=== PATIENT | female | born 1950 | race Asian ===

== ENCOUNTER 2016-12-01 10:37 | Outpatient (CLI) | payer OTHER ==
[2016-12-01 11:27] LABS: PLATELET COUNT 210 K/uL (152-353)
[2016-12-01 11:41] LABS: POTASSIUM 3.7 mmol/L (3.6-5.2); SODIUM 141 mmol/L (136-145)
== END 2016-12-01 11:40 | disposition home or self-care (01) ==
LOC: LABW 10:37
PROVIDERS: Nurse Practitioner
DX: Z79.899 Other long term (current) drug therapy (principal); I10 Essential (primary) hypertension; E78.00 Pure hypercholesterolemia, unspecified; E55.9 Vitamin D deficiency, unspecified; R53.83 Other fatigue
CPT/HCPCS: 36415; 80053; 80061; 82043; 82306; 82570; 82607; 83036; 84443; 85027

== ENCOUNTER 2017-01-11 11:01 | Outpatient (CLI) | payer OTHER | END 2017-01-11 12:30 | disposition home or self-care (01) | LOC: MAMMO 11:01 | DX: Z12.31 Encounter for screening mammogram for malignant neoplasm of breast (principal) ==

== ENCOUNTER 2018-01-13 10:21 | Outpatient (CLI) | payer OTHER | END 2018-01-13 22:18 | disposition home or self-care (01) | LOC: MAMMO 10:21 | DX: Z12.31 Encounter for screening mammogram for malignant neoplasm of breast (principal) ==

== ENCOUNTER 2018-08-08 11:19 | Outpatient (CLI) | payer OTHER ==
[2018-08-08 11:59] LABS: POTASSIUM 3.5 mmol/L (3.6-5.2)
== END 2018-08-08 22:48 | disposition home or self-care (01) ==
LOC: LABW 11:19
PROVIDERS: Nurse Practitioner
DX: E11.9 Type 2 diabetes mellitus without complications (principal); E87.6 Hypokalemia
CPT/HCPCS: 36415; 80048; 83036; 83735

== ENCOUNTER 2019-01-16 10:41 | Outpatient (CLI) | payer OTHER ==
[2019-01-16 13:01] LABS: POTASSIUM 3.5 mmol/L (3.6-5.2)
== END 2019-01-16 19:47 | disposition home or self-care (01) ==
LOC: MAMMO 10:41 → LABW 10:41
PROVIDERS: Nurse Practitioner
DX: Z12.31 Encounter for screening mammogram for malignant neoplasm of breast (principal); E11.9 Type 2 diabetes mellitus without complications; R79.0 Abnormal level of blood mineral
CPT/HCPCS: 36415; 80048; 82043; 82570; 83036; 83735

== ENCOUNTER 2019-07-05 13:34 | Outpatient (CLI) | payer OTHER ==
[2019-07-05 14:07] LABS: PLATELET COUNT 206 K/uL (152-353)
[2019-07-05 14:31] LABS: POTASSIUM 3.8 mmol/L (3.6-5.2)
== END 2019-07-05 22:46 | disposition home or self-care (01) ==
LOC: LAB 13:34
PROVIDERS: Nurse Practitioner Family
DX: Z00.00 Encounter for general adult medical examination without abnormal findings (principal); K21.9 Gastro-esophageal reflux disease without esophagitis; D64.89 Other specified anemias; E11.9 Type 2 diabetes mellitus without complications; I10 Essential (primary) hypertension; E87.6 Hypokalemia; R63.5 Abnormal weight gain; Z79.899 Other long term (current) drug therapy
CPT/HCPCS: 80053; 80061; 83036; 84439; 84443; 84481; 85027

== ENCOUNTER 2019-12-13 16:58 | Outpatient (CLI) | payer OTHER ==
[2019-12-13 19:30] LABS: PLATELET COUNT 208 K/uL (152-353)
== END 2019-12-13 21:13 | disposition home or self-care (01) ==
LOC: LABW 16:58
PROVIDERS: Nurse Practitioner
DX: E11.9 Type 2 diabetes mellitus without complications (principal)
CPT/HCPCS: 83036; 85027

== ENCOUNTER 2020-01-21 09:17 | Outpatient (CLI) | payer OTHER | END 2020-01-21 23:29 | disposition home or self-care (01) | LOC: MAMMO 09:17 | DX: Z12.31 Encounter for screening mammogram for malignant neoplasm of breast (principal) ==

== ENCOUNTER → 2020-06-04 10:12 | Outpatient (CLI) | payer OTHER | END | disposition home or self-care (01) | LOC: LABW 10:12 | PROVIDERS: ATTEND Nurse Practitioner | DX: Z12.11 Encounter for screening for malignant neoplasm of colon (principal); Z79.899 Other long term (current) drug therapy | CPT/HCPCS: 82272 ==

== ENCOUNTER 2020-07-03 08:34 | Outpatient (CLI) | payer OTHER | END 2020-07-03 21:42 | disposition home or self-care (01) | LOC: RAD 08:34 | PROVIDERS: ATTEND Nurse Practitioner | DX: Z13.820 Encounter for screening for osteoporosis (principal); N95.8 Other specified menopausal and perimenopausal disorders ==

== ENCOUNTER 2020-08-19 20:55 | Emergency (ER) | payer OTHER ==
[~2020-08-19] VITALS: Ht 175.3 cm; Wt 106.6 kg
[2020-08-20 01:03] VITALS: BP 165/74; TEMP 98.4
== END 2020-08-20 01:05 | disposition home or self-care (01) ==
LOC: ED 20:55
DX: M19.012 Primary osteoarthritis, left shoulder (principal); M19.011 Primary osteoarthritis, right shoulder; M79.601 Pain in right arm
CPT/HCPCS: 96372; 99283; J1885

== ENCOUNTER 2021-03-05 02:05 | Emergency (ER) | payer OTHER ==
[~2021-03-05] VITALS: Ht 175.3 cm; Wt 108.9 kg
[2021-03-05 02:45] LABS: PLATELET COUNT 244 K/uL (152-353)
[2021-03-05 02:50] LABS: POTASSIUM 3.2 mmol/L (3.6-5.2)
[2021-03-05 03:04] LABS: PARTIAL THROMBOPLASTIN TIME 23.9 SECONDS (24.5-33.6)
[2021-03-05 03:55] VITALS: BP 138/81; TEMP 98.5
== END 2021-03-05 04:00 | disposition home or self-care (01) ==
LOC: ED 02:05
PROVIDERS: Hospitalist
PROC: 0HQ0XZZ Repair Scalp Skin, External Approach (ICD-10-PCS; principal; 2021-03-05)
DX: S01.01XA Laceration without foreign body of scalp, initial encounter (principal); S09.8XXA Other specified injuries of head, initial encounter; W18.09XA Striking against other object with subsequent fall, initial encounter; Y92.89 Other specified places as the place of occurrence of the external cause
CPT/HCPCS: 36415; 80048; 80320; 85027; 85610; 85730; 90472; 90715; 96372; 96375; 99283; J0690; J1885; J7040

== ENCOUNTER 2021-03-16 11:55 | Emergency (ER) | payer OTHER ==
[~2021-03-16] VITALS: Ht 175.3 cm; Wt 108.9 kg
[2021-03-16 12:01] VITALS: BP 159/73; TEMP 98.6
== END 2021-03-16 13:30 | disposition home or self-care (01) ==
LOC: ED 11:55
DX: S01.01XD Laceration without foreign body of scalp, subsequent encounter (principal); Z48.02 Encounter for removal of sutures; W18.39XD Other fall on same level, subsequent encounter; Y92.098 Other place in other non-institutional residence as the place of occurrence of the external cause

== ENCOUNTER 2021-04-09 10:01 | Outpatient (CLI) | payer OTHER | END 2021-04-09 19:24 | disposition home or self-care (01) | LOC: MAMMO 10:01 | PROVIDERS: ATTEND Internal Medicine | DX: Z12.31 Encounter for screening mammogram for malignant neoplasm of breast (principal) ==

== ENCOUNTER 2021-04-14 16:30 | Outpatient (CLI) | payer OTHER ==
[2021-04-14 17:20] LABS: PLATELET COUNT 251 K/uL (152-353)
[2021-04-14 17:38] LABS: POTASSIUM 3.9 mmol/L (3.6-5.2)
== END 2021-04-14 18:55 | disposition home or self-care (01) ==
LOC: LAB 16:30
PROVIDERS: ATTEND Internal Medicine
DX: E11.9 Type 2 diabetes mellitus without complications (principal)
CPT/HCPCS: 80053; 80061; 83036; 84439; 84443; 85027

== ENCOUNTER 2021-11-05 09:19 | Outpatient (CLI) | payer OTHER | END 2021-11-05 19:04 | disposition home or self-care (01) | LOC: US 09:19 | PROVIDERS: ATTEND Internal Medicine | DX: R82.998 Other abnormal findings in urine (principal) ==

== ENCOUNTER 2022-03-15 13:31 | Outpatient (CLI) | payer OTHER ==
[2022-03-15 14:00] LABS: PLATELET COUNT 239 K/uL (152-353)
[2022-03-15 14:15] LABS: POTASSIUM 3.7 mmol/L (3.6-5.2)
== END 2022-03-15 20:30 | disposition home or self-care (01) ==
LOC: LAB 13:31
PROVIDERS: ATTEND Internal Medicine
DX: E11.9 Type 2 diabetes mellitus without complications (principal); R82.998 Other abnormal findings in urine
CPT/HCPCS: 80053; 80061; 81000; 83036; 84439; 84443; 85027; 87086; 87088

== ENCOUNTER 2022-04-20 10:31 | Outpatient (CLI) | payer OTHER | END 2022-04-20 22:19 | disposition home or self-care (01) | LOC: MAMMO 10:31 | PROVIDERS: ATTEND Internal Medicine | DX: Z00.00 Encounter for general adult medical examination without abnormal findings (principal); Z12.31 Encounter for screening mammogram for malignant neoplasm of breast ==

== ENCOUNTER 2022-09-13 12:11 | Outpatient (CLI) | payer OTHER ==
[2022-09-13 12:51] LABS: PLATELET COUNT 254 K/uL (152-353)
[2022-09-13 13:07] LABS: POTASSIUM 3.3 mmol/L (3.6-5.2)
== END 2022-09-13 19:08 | disposition home or self-care (01) ==
LOC: LAB 12:11
PROVIDERS: ATTEND Internal Medicine
DX: E11.9 Type 2 diabetes mellitus without complications (principal); E55.9 Vitamin D deficiency, unspecified; R82.998 Other abnormal findings in urine
CPT/HCPCS: 80053; 80061; 81000; 82043; 82306; 83036; 84439; 84443; 85027; 87077; 87086; 87088; 87186

== ENCOUNTER 2022-11-10 12:01 | Outpatient (CLI) | payer OTHER ==
[2022-11-10 12:58] LABS: PLATELET COUNT 249 K/uL (152-353)
[2022-11-10 13:10] LABS: POTASSIUM 3.1 mmol/L (3.6-5.2)
== END 2022-11-10 19:59 | disposition home or self-care (01) ==
LOC: LAB 12:01
PROVIDERS: ATTEND Internal Medicine
DX: E11.9 Type 2 diabetes mellitus without complications (principal)
CPT/HCPCS: 80053; 83036; 85027

== ENCOUNTER 2023-01-05 13:16 | Day surgery (SDC) | payer OTHER ==
[~2023-01-05] VITALS: Ht 165.1 cm; Wt 68.0 kg
== END 2023-01-05 17:45 | disposition home or self-care (01) ==
LOC: OR 13:16
PROVIDERS: ATTEND Internal Medicine Gastroenterology
PROC: 0DJD8ZZ Inspection of Lower Intestinal Tract, Via Natural or Artificial Opening Endoscopic (ICD-10-PCS; principal; 2023-01-05)
DX: Z12.11 Encounter for screening for malignant neoplasm of colon (principal); Z86.010 Personal history of colon polyps; K57.30 Diverticulosis of large intestine without perforation or abscess without bleeding; K64.0 First degree hemorrhoids
CPT/HCPCS: J2704; J7120